=== PATIENT | female | born 1950 | race Caucasian/White ===

== ENCOUNTER → 2020-07-19 | Outpatient (CLI) | payer MEDICARE ==
[~2020-07-19] MED LIST: REGADENOSON 0.4 MG/5 ML SYRINGE ONE
== END | disposition home or self-care (01) ==
LOC: CFH 06:55
PROVIDERS: ATTEND Internal Medicine Cardiovascular Disease
DX: I08.8 Other rheumatic multiple valve diseases (principal); I25.9 Chronic ischemic heart disease, unspecified; I11.9 Hypertensive heart disease without heart failure; I27.20 Pulmonary hypertension, unspecified; I25.10 Atherosclerotic heart disease of native coronary artery without angina pectoris
CPT/HCPCS: 78452; 93017; 93306; A9502; J2785

== ENCOUNTER 2020-08-20 09:50 | Day surgery (SDC) | payer MEDICARE ==
[~2020-08-20] VITALS: Ht 157.5 cm; Wt 63.6 kg
[2020-08-20 10:22] VITALS: BP 162/78
[2020-08-20] MEDS ORDERED: PLEASE ENTER ALLERGIES MC SCH (10:30)
[2020-08-20] MEDS ORDERED: PLEASE ENTER HEIGHT AND WEIGHT MC SCH (10:30)
[2020-08-20] MEDS ORDERED: SODIUM CHLORIDE 0.9% 1,000 ML IV SCH ×2 (10:30→13:30)
[2020-08-20] MEDS ORDERED: INSU100V8 SQ (10:31)
[2020-08-20] MEDS ORDERED: CARV3.1212 PO (10:31)
[2020-08-20] MEDS ORDERED: ASPI81TA45 PO (10:31)
[2020-08-20] MEDS ORDERED: TICA60TA PO (10:31)
[2020-08-20] MEDS ORDERED: ATOR40TA PO (10:31)
[2020-08-20] MEDS ORDERED: LISI-170 PO (10:31)
[2020-08-20 10:44] LABS: BASOPHILS % (AUTO) 1 % (0-1); EOSINOPHILS % (AUTO) 1 % (1-7); LYMPHOCYTES % (AUTO) 21 % (22-44); MEAN CORPUSCULAR HEMOGLOBIN 31.4 pg (27.0-34.8); MEAN CORPUSCULAR HGB CONC 34.5 g/dL (32.4-35.8); MONOCYTES % (AUTO) 7 % (2-9); NEUTROPHILS % (AUTO) 70 % (42-75); PLATELET COUNT 210 x10^3/uL (130-400); RED BLOOD COUNT 3.04 x10^6/uL (3.82-5.3); RED CELL DISTRIBUTION WIDTH 13.1 % (9.6-15.2)
[2020-08-20 10:48] LABS: MD NO
[2020-08-20 10:49] LABS: ANION GAP 5 mmol/L (5-15); CALCIUM 8.8 mg/dL (8.5-10.1); CHLORIDE 114 mmol/L (98-107)
[2020-08-20 10:50] LABS: CREATININE 1.24 mg/dL (0.55-1.02)
[2020-08-20] MEDS ORDERED: MIDAZOLAM 1 MG/ML, 5ML ONE (12:29)
[2020-08-20] MEDS ORDERED: FENTANYL PF 100 MCG/2ML ONE (12:29)
[2020-08-20] MEDS ORDERED: LIDOCAINE 2%, 20ML ONE (12:29)
[2020-08-20] MEDS ORDERED: BIVALIRUDIN 250 MG ONE (12:29)
[2020-08-20] MEDS ORDERED: HEPARIN 1,000 UNITS/ML, 10ML ONE (12:29)
[2020-08-20] MEDS ORDERED: VERAPAMIL 2.5 MG/ML, 2ML ONE (12:29)
[2020-08-20] MEDS ORDERED: hydrALAzine 20 MG/ML, 1ML ONE (14:55)
[2020-08-20] MEDS ORDERED: hydrALAzine 20 MG/ML, 1ML IV ONE (15:00)
[2020-08-20] MEDS ORDERED: ACETAMINOPHEN 325 MG TABLET ONE (16:05)
== END 2020-08-20 16:42 | disposition home or self-care (01) ==
LOC: CACL 09:50
PROVIDERS: ATTEND Internal Medicine Cardiovascular Disease
DX: R94.39 Abnormal result of other cardiovascular function study (principal); I25.10 Atherosclerotic heart disease of native coronary artery without angina pectoris; I12.9 Hypertensive chronic kidney disease with stage 1 through stage 4 chronic kidney disease, or unspecified chronic kidney disease; E11.22 Type 2 diabetes mellitus with diabetic chronic kidney disease; N18.2 Chronic kidney disease, stage 2 (mild); E78.2 Mixed hyperlipidemia; Z79.82 Long term (current) use of aspirin; Z79.899 Other long term (current) drug therapy; Z79.4 Long term (current) use of insulin
CPT/HCPCS: 36415; 80048; 85025; 93458; 99156; 99157; C1769; C1894; J0360; J1644; J2250; J3010; Q9967; J0583